=== PATIENT | male | born 1950 | race Caucasian/White ===

== ENCOUNTER → 2018-04-04 10:50 | Outpatient (CLI) | payer MEDICARE, OTHER, SELFPAY ==
--- NOTE | 2018-04-04 11:01 | XR_ITS ---
XR knee RT 3V HISTORY: ITS.REASON: BILATERAL KNEE PAIN ORDERING PHYSICIAN: Nya Kenyon MD PATIENT AGE: 67 years COMPARISON: None FINDINGS: No fracture or dislocation. No lytic or blastic change. Normal mineralization. Minor osteoarthritic changes involving all 3 compartments. IMPRESSION: Mild osteoarthritis otherwise negative
--- NOTE | 2018-04-04 11:01 | XR_ITS ---
XR knee LT 3V HISTORY: ITS.REASON: BILATERAL KNEE PAIN ORDERING PHYSICIAN: Nya Kenyon MD PATIENT AGE: 67 years COMPARISON: None FINDINGS: No fracture or dislocation. No lytic or blastic change. Normal mineralization. Minor osteoarthritic changes are present involving the medial department at the patellofemoral joint. IMPRESSION: Mild osteoarthritis
== END ==
PROVIDERS: PCP Emergency Medicine; Visit Provider Emergency Medicine
DX: M25.561 Pain in right knee (principal); M25.562 Pain in left knee
CPT/HCPCS: 73562

== ENCOUNTER 2018-04-17 08:00 | Outpatient (RCR) | payer MEDICARE, OTHER, SELFPAY ==
--- NOTE | 2018-04-10 09:25 | HMH.PTOPEV ---
PT Outpatient Evaluation Rehab PT Outpatient Evaluation Start: 04/10/18 09:14 Freq: Status: Active Protocol: Document 04/10/18 09:14 GABY (Rec: 04/10/18 09:24 GABY [id number]) Electronically Signed By Isauro Ibarra, PT 04/10/18 09:14 Outpatient Therapy Subjective History Subjective History Pt reports injuring R knee while cutting down limb w/ chainsaw ~6-8 weeks ago. Pt reports medial R knee pain following accident, and L knee pain ~3-4 days after in posterior area. Pt reports localized medial R knee pain, and posterior L knee tightness , w/one episode of the ' locking up' ~2 weeks ago. Chief Complaint Pain Stiff Swelling Weakness Symptom Type Ache Throb Sharp Dull Symptoms Relieved By Rest/Positioning Ice Symptoms Aggravated By Standing Physical Activity Walking Prior Functional Limitations None Current Functional Limitations Standing Squatting Recreation Activity Walking Stairs Symptom Description Constant but Variable Level of pain today (0-10) 6 Pain scale - at its best (0-10) 4 Pain scale - at its worst (0-10) 8 Hip/Knee Eval Gait Observation General Gait Pattern Observation Antalgic Gait Palpation Tenderness left Knee Palpation Finding Tenderness Knee Palpation Overall Comment POPITEAL 3/4 right Knee Palpation Finding Tenderness Knee Palpation Overall Comment 3/4 MCL MMT left Hip Flexion Strength Grade 5 Normal Hip Abduction Strength Grade 4- Good- Hip Adduction Strength Grade 4- Good- Hip Extension Strength Grade 4 Good Hip External Rotation Strength Grade 4 Good Hip Internal Rotation Strength Grade 4 Good Knee Extension Strength Grade 5 Normal Knee Flexion Strength Grade 4- Good- right Hip Flexion Strength Grade 4 Good Hip Abduction Strength Grade 4- Good- Hip Adduction Strength Grade 4- Good- Hip Extension Strength Grade 4 Good Hip External Rotation Strength Grade 4- Good- Hip Internal Rotation Strength Grade 4 Good Knee Extension Streng
== END 2018-04-17 08:05 | disposition home or self-care (01) ==
LOC: PT 08:00
PROVIDERS: Visit Provider Emergency Medicine
DX: M25.562 Pain in left knee (principal); M25.561 Pain in right knee
CPT/HCPCS: 97010; 97014; 97035; 97110; 97163; G0283

== ENCOUNTER 2020-02-17 08:30 | Outpatient (CLI) | payer MEDICARE, SELFPAY ==
[2020-02-17 09:20] VITALS: BP 146/82; PULSE 61; RESP 18; TEMP 36.5; O2SAT 98
[2020-02-17 09:35] VITALS: BP 135/81; PULSE 58; RESP 18
[2020-02-17 09:50] VITALS: BP 137/74; PULSE 61; RESP 20
== END 2020-02-17 10:00 | disposition home or self-care (01) ==
LOC: INF 08:44
PROVIDERS: Visit Provider Internal Medicine Medical Oncology
DX: C71.1 Malignant neoplasm of frontal lobe (principal); Z51.11 Encounter for antineoplastic chemotherapy
CPT/HCPCS: 96413; J9035

== ENCOUNTER 2020-03-02 09:10 | Outpatient (CLI) | payer MEDICARE, SELFPAY ==
[2020-03-02 09:45] VITALS: BP 132/92; PULSE 65; RESP 18; TEMP 36; O2SAT 98
[2020-03-02 10:00] VITALS: BP 132/84; PULSE 52; RESP 18
[2020-03-02 10:15] VITALS: BP 133/78; PULSE 55; RESP 18
== END 2020-03-02 10:30 | disposition home or self-care (01) ==
LOC: INF 09:20
PROVIDERS: Visit Provider Internal Medicine Medical Oncology
DX: Z51.11 Encounter for antineoplastic chemotherapy (principal); C71.1 Malignant neoplasm of frontal lobe
CPT/HCPCS: 96413; J9035

== ENCOUNTER 2020-03-16 08:05 | Outpatient (CLI) | payer MEDICARE, SELFPAY ==
[2020-03-16 08:50] VITALS: BP 144/91; PULSE 60; RESP 18; TEMP 35.8; O2SAT 98
[2020-03-16 09:05] VITALS: BP 139/100; PULSE 58; RESP 18
[2020-03-16 09:20] VITALS: BP 151/89; PULSE 65; RESP 18
== END 2020-03-16 09:35 | disposition home or self-care (01) ==
LOC: INF 08:12
PROVIDERS: Visit Provider Internal Medicine Medical Oncology
DX: Z51.11 Encounter for antineoplastic chemotherapy (principal); C71.1 Malignant neoplasm of frontal lobe
CPT/HCPCS: 96413; J9035

== ENCOUNTER 2020-03-30 09:46 | Outpatient (CLI) | payer MEDICARE, SELFPAY ==
[2020-03-30 10:34] VITALS: BP 138/88; PULSE 68; RESP 20; TEMP 36.1; O2SAT 98
[2020-03-30 11:04] VITALS: BP 131/81; PULSE 65; RESP 20; O2SAT 99
[2020-03-30 11:20] VITALS: BP 125/83; PULSE 67; RESP 20; O2SAT 99
== END 2020-03-30 11:20 | disposition home or self-care (01) ==
LOC: INF 09:46
PROVIDERS: Visit Provider Internal Medicine Medical Oncology
DX: Z51.11 Encounter for antineoplastic chemotherapy (principal); C71.1 Malignant neoplasm of frontal lobe
CPT/HCPCS: 96413; J9035

== ENCOUNTER 2020-04-13 08:10 | Outpatient (CLI) | payer MEDICARE, SELFPAY ==
[2020-04-13 09:00] VITALS: BP 116/84; PULSE 58; RESP 18
[2020-04-13 09:15] VITALS: BP 127/80; PULSE 60; RESP 18
[2020-04-13 09:35] VITALS: BP 129/75; PULSE 62; RESP 18
[2020-04-13 11:15] VITALS: BP 134/81; PULSE 63; RESP 18; TEMP 36.1; O2SAT 97
== END 2020-04-13 09:35 | disposition home or self-care (01) ==
LOC: INF 08:21
PROVIDERS: Visit Provider Internal Medicine Medical Oncology
DX: Z51.11 Encounter for antineoplastic chemotherapy (principal); C71.1 Malignant neoplasm of frontal lobe
CPT/HCPCS: 96413; J9035

== ENCOUNTER 2020-04-19 09:00 | Outpatient (RCR) | payer MEDICARE, SELFPAY | END 2020-04-19 09:05 | disposition home or self-care (01) | LOC: OT 09:00 | PROVIDERS: PCP Family Medicine | DX: C71.9 Malignant neoplasm of brain, unspecified (principal) | CPT/HCPCS: 97110; 97165; 97530 ==

== ENCOUNTER 2020-04-25 09:25 | Outpatient (CLI) | payer MEDICARE, SELFPAY ==
[2020-04-25 10:20] VITALS: BP 156/86; PULSE 69; RESP 18; TEMP 36.3; O2SAT 95
[2020-04-25 10:35] VITALS: BP 143/78; PULSE 76; RESP 18
[2020-04-25 10:50] VITALS: BP 160/73; PULSE 74; RESP 18
[2020-04-25 11:04] VITALS: BP 154/77; PULSE 74; RESP 18
== END 2020-04-25 11:04 | disposition home or self-care (01) ==
LOC: INF 09:35
PROVIDERS: Visit Provider Internal Medicine Medical Oncology
DX: Z51.11 Encounter for antineoplastic chemotherapy (principal); C71.1 Malignant neoplasm of frontal lobe
CPT/HCPCS: 96413; J9035

== ENCOUNTER 2020-05-11 08:35 | Outpatient (CLI) | payer MEDICARE, SELFPAY ==
[2020-05-11 09:40] VITALS: BP 136/88; PULSE 71; RESP 18; TEMP 36
[2020-05-11 09:55] VITALS: BP 147/78; PULSE 71; RESP 18
[2020-05-11 10:10] VITALS: BP 140/89; PULSE 72; RESP 18
== END 2020-05-11 10:30 | disposition home or self-care (01) ==
LOC: INF 08:42
PROVIDERS: Visit Provider Internal Medicine Medical Oncology
DX: Z51.11 Encounter for antineoplastic chemotherapy (principal); C71.1 Malignant neoplasm of frontal lobe
CPT/HCPCS: 96413; J9035

== ENCOUNTER → 2020-05-18 11:22 | Outpatient (CLI) | payer MEDICARE, SELFPAY ==
[2020-05-18 11:23] LABS: Adenovirus F 40/41, stool Not Detected (NotDetected); Astrovirus Not Detected (NotDetected); Campylobacter Not Detected (NotDetected); Clostridium Difficile A/B, PCR Not Detected (NotDetected); Cryptosporidium Not Detected (NotDetected); Cyclospora Cayetanesis Not Detected (NotDetected); Entamoeba histolytica Not Detected (NotDetected); Enteroaggregative E coli Not Detected (NotDetected); Enteropathogenic E coli Not Detected (NotDetected); Enterotoxigenic E coli Not Detected (NotDetected); Giardia lamblia Not Detected (NotDetected); Norovirus Not Detected (NotDetected); Plesimonas Shigalloides, PCR Not Detected (NotDetected); Rotavirus A Not Detected (NotDetected); Salmonella, PCR Not Detected (NotDetected); Sapovirus Not Detected (NotDetected); Shiga-like toxin E coli Not Detected (NotDetected); Shigella Enterovasive E coli Not Detected (NotDetected); Vibrio Cholerae Not Detected (NotDetected); Vibrio, PCR Not Detected (NotDetected); Yersinia Entercolitica, PCR Not Detected (NotDetected)
== END ==
PROVIDERS: Visit Provider Internal Medicine Medical Oncology
DX: C71.1 Malignant neoplasm of frontal lobe (principal); R19.7 Diarrhea, unspecified
CPT/HCPCS: 87506

== ENCOUNTER 2020-05-23 09:20 | Outpatient (CLI) | payer MEDICARE, SELFPAY ==
[2020-05-23 10:10] VITALS: BP 128/85; PULSE 79; RESP 18; TEMP 36.4; O2SAT 97
[2020-05-23 10:25] VITALS: BP 138/87; PULSE 73; RESP 18
[2020-05-23 10:40] VITALS: BP 133/79; PULSE 70; RESP 18
== END 2020-05-23 10:55 | disposition home or self-care (01) ==
LOC: INF 09:31
PROVIDERS: Visit Provider Internal Medicine Medical Oncology
DX: Z51.11 Encounter for antineoplastic chemotherapy (principal); C71.1 Malignant neoplasm of frontal lobe
CPT/HCPCS: 96413; J9035

== ENCOUNTER 2020-06-15 09:40 | Outpatient (CLI) | payer MEDICARE, SELFPAY ==
[2020-06-15 10:45] VITALS: BP 155/95; PULSE 68; RESP 20; TEMP 36.2
[2020-06-15 11:00] VITALS: BP 151/90; PULSE 70; RESP 18
[2020-06-15 11:15] VITALS: BP 166/91; PULSE 72; RESP 18
== END 2020-06-15 11:25 | disposition home or self-care (01) ==
LOC: INF 09:45
PROVIDERS: Visit Provider Internal Medicine Medical Oncology
DX: Z51.11 Encounter for antineoplastic chemotherapy (principal); C71.1 Malignant neoplasm of frontal lobe
CPT/HCPCS: 96413; J9035

== ENCOUNTER 2020-07-03 15:00 | Outpatient (RCR) | payer MEDICARE, SELFPAY | END 2020-07-03 15:05 | disposition home or self-care (01) | LOC: PT 15:00 | PROVIDERS: PCP Family Medicine | DX: C71.9 Malignant neoplasm of brain, unspecified (principal); R26.89 Other abnormalities of gait and mobility; R53.83 Other fatigue | CPT/HCPCS: 97110; 97112; 97116; 97140; 97163; 97164; 97760 ==

== ENCOUNTER 2020-10-04 10:25 | Outpatient (RCR) | payer OTHER, SELFPAY ==
--- NOTE | 2020-10-04 14:57 | HMH.OTOPEV ---
OT Inpatient Evaluation Rehab OT Outpatient Eval Start: 10/04/20 14:38 Freq: Status: Active Protocol: Document 10/04/20 14:39 [facility] (Rec: 10/04/20 14:57 [facility] [id number]) Electronically Signed By Paul Rahman OT 10/04/20 14:39 Outpatient Therapy Subjective History Subjective History Pt is a 69 year old male who reports to therapy for initial evaluation due to left side paralysis. 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 Since this diagnosis pt has chosen not to pursue chemo or radiation for treatment. Pt reports within the last 4 months his left side has become significantly weaker. He reports he is now unable to complete activities of daily living independently. He also explains he is having falls daily due to weakness on L side. Pt presents with significant flaccidity to left side. Pt will continue to be seen in order to address all deficits to try and improve his daily activity function. senior care goals: [employer] strength: 20lbs Elbow Flex: 110 degrees Sup: 40 degrees Wrist Ext: [address]: 15 degrees UD: 15 degrees Short term goals: [employer] strength: 15lbs Elbow Flex: 100 degrees Sup: 20 degrees Wrist Ext: [address]: 10 degrees UD: 10 degrees Chief Complaint Weakness,Decreased [employer] Strength,Decreased Coordination Symptom Type Numbness,Tingling Symptoms Relieved By Nothing Prior Functional Limitations None Current Functional Limitations Reaching,Lifting,Housework,
== END 2020-10-04 10:30 | disposition home or self-care (01) ==
LOC: OT 10:25
PROVIDERS: Visit Provider Family Medicine
DX: G81.94 Hemiplegia, unspecified affecting left nondominant side (principal)
CPT/HCPCS: 97166